=== PATIENT | female | born 1995 | race Caucasian/White ===

== ENCOUNTER 2016-10-13 13:47 | Emergency (ER) | payer OTHER ==
[~2016-10-13] VITALS: Ht 175.3 cm; Wt 61.2 kg
[~2016-10-13 13:47] MED LIST: AZITHROMYCIN250 MG PO; BIRTH CONTROL PILL; CIPRO500 MG PO; CONCERTA54 MG PO; GUAIATUSSIN AC10 ML PO; IMITREX25 MG PO; NORCO 5-325 TA1 EACH PO; PYRIDIUM200 MG PO
[2016-10-13] MEDS ORDERED: AZITHROMYCIN250 MG PO (16:53)
[2016-10-13] MEDS ORDERED: PREDNISONE20 MG PO (16:53)
== END 2016-10-13 17:08 | disposition home or self-care (01) ==
LOC: ED 13:47
DX: J18.9 Pneumonia, unspecified organism (principal); J45.909 Unspecified asthma, uncomplicated; F90.9 Attention-deficit hyperactivity disorder, unspecified type; Z79.899 Other long term (current) drug therapy
CPT/HCPCS: 71020; 84703; 85025; 94640; 94644; 96360; 96361; 99284; J7030

== ENCOUNTER 2022-07-26 16:31 | Inpatient (IN) | payer OTHER ==
[~2022-07-26] VITALS: Ht 175.3 cm; Wt 89.4 kg
[~2022-07-26 16:31] MED LIST changes: +PREDNISONE20 MG PO
[2022-07-26 17:28] VITALS: BP 144/83
--- NOTE | 2022-07-26 20:14 | PR ---
[facility] [address], [place] [address] Signed Progress Notes IP Datetime Report Generated by CPN: 07/26/2022 20:14 PROGRESS NOTES: [id number] Impression: Normal Progression of Labor; Reassuring Heart Rate Plan: Continue Present Management Informed Consent Obtain: Vaginal Delivery; Risks, Benefits and Alternatives Discussed VITAL SIGNS: [id number] Vital Signs: Reviewed VS Notable Details: Initial BP slightly elevated; will monitor EXAM: [id number] Dilatation: 2.0 Effacement: 60 Station: -2 Contractions: Irritability MEMBRANES: [id number] Nitrazine: Positive Comments: Pt seen and examined. Doing well. Becoming more comfortable w/ contractions w/ epidural. RN checked pt _19:00 due to pt c/o rectal pressure; cervix unchanged. Reviewed no s/sx chorioamnionitis. Discussed contraction pattern; high frequency w/ low amplitude. Unable to start pitocin and fetus tolerating well. Will expectantly manage at this point. FETUS A: [id number] FHR Baseline: 135 Variability: Moderate 6-25bpm Accelerations: 15X15 Decelerations: None FHR Category: Category I Presentation: Vertex Comments on Fetus A: No evidence of metabolic acidosis FETUS B: [id number] Signing Physician: Laeh Morales DO Copies: ~ *Electronically Signed* 07/26/222013 LEAH MORALES (DEBBIE) DO PATIENT NAME: PEG MCLEOD PROGRESS NOTE DATE OF : 95 PHYSICIAN: LEAH MORALES (JD) DO RPT #: [id number] REPORT IS CONFIDENTIAL AND NOT TO BE RELEASED WITHOUT AUTHORIZATION
--- NOTE | 2022-07-26 23:11 | PR ---
[facility] [address] [place], [place] [address] Signed Progress Notes IP Datetime Report Generated by CPN: 07/26/2022 23:11 PROGRESS NOTES: [id number] Impression: Normal Progression of Labor; Reassuring Heart Rate Procedures: Sterile Vag Exam Plan: Continue Present Management Informed Consent Obtain: Vaginal Delivery; Risks, Benefits and Alternatives Discussed VITAL SIGNS: [id number] Vital Signs: Reviewed VS Notable Details: Initial BP slightly elevated; will monitor EXAM: [id number] Dilatation: 4.0 Effacement: 80 Station: -2 Contractions: Irritability MEMBRANES: [id number] Nitrazine: Positive Comments: Pt seen and examined. Doing well. Comfortable w/ contractions. Afebile w/ no tachycardia noted. No malodorous or purulent amniotic fluid. Will continue expectant management FETUS A: [id number] FHR Baseline: 135 Variability: Moderate 6-25bpm Accelerations: 15X15 Decelerations: None FHR Category: Category I Presentation: Vertex Comments on Fetus A: No evidence of metabolic acidosis FETUS B: [id number] Signing Physician: Leah Morales DO Copies: ~ *Electronically Signed* 07/26/22 5953 LEAH MORALES (DEBBIE) DO PATIENT NAME: PEG MCLEOD PROGRESS NOTE DATE OF : 95 PHYSICIAN: LEAH MORALES (JD) DO RPT #: [id number] REPORT IS CONFIDENTIAL AND NOT TO BE RELEASED WITHOUT AUTHORIZATION
--- NOTE | 2022-07-26 23:12 | PR ---
[facility] [address] [place], [place] [address] Signed Progress Notes IP Datetime Report Generated by CPN: 07/26/2022 23:12 PROGRESS NOTES: [id number] Impression: Normal Progression of Labor; Reassuring Heart Rate Procedures: Sterile Vag Exam Plan: Continue Present Management Informed Consent Obtain: Vaginal Delivery; Risks, Benefits and Alternatives Discussed VITAL SIGNS: [id number] Vital Signs: Reviewed VS Notable Details: Initial BP slightly elevated; will monitor EXAM: [id number] Dilatation: 4.0 Effacement: 80 Station: -2 Contractions: Irritability MEMBRANES: [id number] Nitrazine: Positive Comments: Pt seen and examined. Doing well. Comfortable w/ contractions. Afebile w/ no tachycardia noted. No malodorous or purulent amniotic fluid. Will continue expectant management FETUS A: [id number] FHR Baseline: 135 Variability: Moderate 6-25bpm Accelerations: 15X15 Decelerations: None FHR Category: Category I Presentation: Vertex Comments on Fetus A: No evidence of metabolic acidosis FETUS B: [id number] Signing Physician: Leah Morales DO Copies: ~ *Electronically Signed* 07/26/22 1911 LEAH MORALES (DEBBIE) DO PATIENT NAME: PEG MCLEOD PROGRESS NOTE DATE OF : 95 PHYSICIAN: LEAH MORALES (JD) DO RPT #: [id number] REPORT IS CONFIDENTIAL AND NOT TO BE RELEASED WITHOUT AUTHORIZATION
--- NOTE | 2022-07-27 02:15 | PR ---
[facility] [address] [place], [place] [address] Signed Progress Notes IP Datetime Report Generated by PITER: 07/27/2022 02:15 PROGRESS NOTES: [id number] Impression: Normal Progression of Labor; Reassuring Heart Rate Procedures: Sterile Vag Exam Plan: Continue Present Management; Anticipate Vaginal Delivery Informed Consent Obtain: Vaginal Delivery VITAL SIGNS: [id number] Vital Signs: Reviewed VS Notable Details: Initial BP slightly elevated; will monitor EXAM: [id number] Dilatation: 9.5 Effacement: 100 Station: -1 Contractions: Irritability MEMBRANES: [id number] Nitrazine: Positive Comments: Pt seen and examined. Doing well. Comfortable w/ epidural. No pressure or complaints. On exam (Gracie Bangura RN present as aerial photograph interpreter), bloody show and now 9.5cm -1 station. Discussed anticipated / 2nd stage of labor. All questions answered. Anticipate . Will start pushing once complete FETUS A: [id number] FHR Baseline: 135 Variability: Moderate 6-25bpm Accelerations: 15X15 Decelerations: None FHR Category: Category I Presentation: Vertex Comments on Fetus A: No evidence of metabolic acidosis FETUS B: [id number] Signing Physician: Leah Morales DO Copies: ~ *Electronically Signed* 07/27/22 0215 LEAH MORALES (DEBBIE) DO PATIENT NAME: PEG MCLEOD PROGRESS NOTE DATE OF : 95 PHYSICIAN: LEAH MORALES (JD) DO RPT #: [id number] REPORT IS CONFIDENTIAL AND NOT TO BE RELEASED WITHOUT AUTHORIZATION
--- NOTE | 2022-07-29 06:07 | PR ---
[facility] [address] [facility] [place] [address] Signed PP Progress Notes Datetime Report Generated by CPSaba: 07/29/2022 06:07 SUBJECTIVE: [id number] Pain: Within Normal Limits Nausea/Vomiting: Denies Flatus: Yes Bowel Movement: No Vital Signs: [id number] Vital Signs: Reviewed; Within Normal Limits Notable Details: Afebrile Cardiovascular: Normal Respiratory: Normal Abdomen/Uterus: Normal Lochia: Not Done Vulva/Perineum: Not Done Breasts: Not Done CVA Tenderness: Normal Extremities: Normal Incision: Not Applicable Progress: Normal Exam Comments: Fundus firm U-2 nontender IMPRESSION/PLAN/PROCEDURES: [id number] Impression: Normal Progression Plan: Discharge Progress Notes: Pt seen and examined. Doing well. Ambulating, voiding, and tolerating full diet. Lochia minimal. Perineal pain yesterday became uncontrolled; responded well to prescribed narcotics and sitz baths. well. No fevers/chills or other concerns. Desires d/c home today. Reviewed d/c instructions in detail. Undecided on pp contraception. No other questions or concerns. Signing Physician: Leah Morales DO Copies: ~ *Electronically Signed* 07/29/22 0607 LEAH MORALES (DEBBIE) DO PATIENT NAME: PEG MCLEOD PROGRESS NOTE DATE OF : 95 PHYSICIAN: LEAH MORALES DO (JD) RPT #: [id number] REPORT IS CONFIDENTIAL AND NOT TO BE RELEASED WITHOUT AUTHORIZATION
== END 2022-07-29 13:35 | disposition home or self-care (01) | DRG 807 ==
LOC: FBCO 16:31 → FBC 16:58
PROVIDERS: ADMIT Obstetrics & Gynecology; ATTEND Obstetrics & Gynecology
PROC: 10E0XZZ Delivery of Products of Conception, External Approach (ICD-10-PCS; principal; 2022-07-26)
PROC: 0KQM0ZZ Repair Perineum Muscle, Open Approach (ICD-10-PCS; 2022-07-26)
PROC: 00HU33Z Insertion of Infusion Device into Spinal Canal, Percutaneous Approach (ICD-10-PCS; 2022-07-26)
PROC: 3E0R3BZ Introduction of Anesthetic Agent into Spinal Canal, Percutaneous Approach (ICD-10-PCS; 2022-07-26)
PROC: 3E033VJ Introduction of Other Hormone into Peripheral Vein, Percutaneous Approach (ICD-10-PCS; 2022-07-26)
PROC: 10H07YZ Insertion of Other Device into Products of Conception, Via Natural or Artificial Opening (ICD-10-PCS; 2022-07-26)
PROC: 0UQG7ZZ Repair Vagina, Via Natural or Artificial Opening (ICD-10-PCS; 2022-07-26)
DX: O99.344 Other mental disorders complicating childbirth (principal); Z37.0 Single live birth; L70.9 Acne, unspecified; F32.A Depression, unspecified; F41.9 Anxiety disorder, unspecified; F98.8 Other specified behavioral and emotional disorders with onset usually occurring in childhood and adolescence; O70.1 Second degree perineal laceration during delivery; Z67.10 Type A blood, Rh positive; Z3A.38 38 weeks gestation of pregnancy; Z98.818 Other dental procedure status; Z79.899 Other long term (current) drug therapy
CPT/HCPCS: 01960; 36415; 85027; 86850; 86900; 86901; A9270; J2590; J7121

== ENCOUNTER 2024-02-19 17:04 | Inpatient (IN) | payer OTHER ==
[~2024-02-19] VITALS: Ht 175.3 cm; Wt 83.9 kg
[2024-02-19] MEDS ORDERED: miSOPROStoL 25 MCG TAB ONE ×2 (17:50)
[2024-02-19 17:57] LABS: HEMATOCRIT 36.1 % (35.0-50.0); HEMOGLOBIN 12.2 g/dL (12.0-18.0); MCH 31.4 (27-36); MCV 92.6 fl (81-99); RBC 3.9 M/ul (4.3-5.7); RDW 14.1 (10.5-15.0)
[2024-02-19] MEDS ORDERED: OXYTOCIN/DEXTROSE 5% 20 UNITS/100 ML BAG IV SCH (18:00)
[2024-02-19 18:20] LABS: AMPHETAMINES, URINE NEGATIVE (NEGATIVE); BARBITURATES, URINE NEGATIVE (NEGATIVE); BENZODIAZEPINE, URINE NEGATIVE (NEGATIVE); BUPRENORPHINE, URINE NEGATIVE (NEGATIVE); CANNABINOID, URINE NEGATIVE (NEGATIVE); COCAINE, URINE NEGATIVE (NEGATIVE); ECSTASY, URINE NEGATIVE (NEGATIVE); FENTANYL, URINE NEGATIVE (NEGATIVE); METHADONE, URINE NEGATIVE (NEGATIVE); OPIATES, URINE NEGATIVE (NEGATIVE); OXYCODONE, URINE NEGATIVE (NEGATIVE); PHENCYCLIDINE, URINE NEGATIVE (NEGATIVE)
[2024-02-19 18:32] VITALS: BP 123/73
[2024-02-19 18:32] LABS: ABO A; ANTIBODY SCREEN NEGATIVE; RH POSITIVE
[2024-02-19] MEDS ORDERED: LACTATED RINGER'S 1,000 ML IV SCH (19:00)
[2024-02-19] MEDS ORDERED: CALCIUM CARBONATE 500 MG CHEW PO PRN (19:00)
[2024-02-19] MEDS ORDERED: MAGNESIUM HYDROXIDE/AL HYDROX 30 ML CUP PO PRN (19:00)
[2024-02-19] MEDS ORDERED: LACTATED RINGER'S 1,000 ML IV PRN (19:00)
[2024-02-19] MEDS ORDERED: miSOPROStoL 25 MCG TAB PV SCH (19:00)
[2024-02-20] MEDS ORDERED: OXYTOCIN/0.9 % SODIUM CHLORIDE 500 ML IV SCH ×2 (08:36→20:00)
[2024-02-20] MEDS ORDERED: ROPIVACAINE 0.2% 200 ML BAG ONE (09:44)
[2024-02-20] MEDS ORDERED: fentaNYL citrate 100 MCG/2 ML VIAL ONE (09:44)
[2024-02-20] MEDS ORDERED: ePHEDrine sulfate 5 MG/ML SYRINGE IV PRN (10:30)
[2024-02-20] MEDS ORDERED: LACTATED RINGER'S 500 ML IV PRN (10:30)
[2024-02-20] MEDS ORDERED: ROPIVACAINE 0.2% 200 ML BAG EPIDURAL SCH (10:30)
[2024-02-20] MEDS ORDERED: LACTATED RINGER'S 2,000 ML IV ONE (10:30)
[2024-02-20] MEDS ORDERED: WITCH HAZEL/GLYCERIN 1 EA PAD TOP PRN (20:00)
[2024-02-20] MEDS ORDERED: HYDROCORTISONE ACETATE 25 MG SUPP PR PRN (20:00)
[2024-02-20] MEDS ORDERED: MAGNESIUM HYDROXIDE 30 ML UDC PO PRN (20:00)
[2024-02-20] MEDS ORDERED: MAGNESIUM HYDROXIDE/AL HYDROX 30 ML CUP PO PRN (20:00)
[2024-02-20] MEDS ORDERED: ACETAMINOPHEN 325 MG TAB PO PRN (20:00)
[2024-02-20] MEDS ORDERED: BENZOCAINE 60 ML AEROSOL TOP PRN (20:00)
[2024-02-20] MEDS ORDERED: IBUPROFEN 600 MG TAB PO PRN (20:00)
[2024-02-20] MEDS ORDERED: CALCIUM CARBONATE 500 MG CHEW PO PRN (20:00)
[2024-02-20 20:30] LABS: BASOPHILS 0.3 % (0-2); EOSINOPHILS 0.7 % (0-6); HEMATOCRIT 38.1 % (35.0-50.0); HEMOGLOBIN 12.7 g/dL (12.0-18.0); MCH 31.2 (27-36); MCHC 33.3 g/dl (30-36); MCV 93.5 fl (81-99); MONOCYTES 5.6 % (0-12); NEUTROPHILS 84.4 % (39-80); PLATELET COUNT 306 K/uL (140-440); RBC 4.07 M/ul (4.3-5.7); RDW 14.2 (10.5-15.0)
[2024-02-20] MEDS ORDERED: SENNOSIDES/DOCUSATE 1 EA TAB PO SCH (21:00)
[2024-02-21 05:29] LABS: HEMATOCRIT 32.7 % (35.0-50.0); MCH 31.7 (27-36); MCHC 33.6 g/dl (30-36); MCV 94.6 fl (81-99); RBC 3.46 M/ul (4.3-5.7); RDW 14.2 (10.5-15.0)
== END 2024-02-22 11:40 | disposition home or self-care (01) | DRG 807 ==
LOC: FBC 17:04
PROVIDERS: Obstetrics & Gynecology; ADMIT Advanced Practice Midwife; ATTEND Advanced Practice Midwife
PROC: 10E0XZZ Delivery of Products of Conception, External Approach (ICD-10-PCS; principal; 2024-02-19)
PROC: 0KQM0ZZ Repair Perineum Muscle, Open Approach (ICD-10-PCS; 2024-02-19)
PROC: 10907ZC Drainage of Amniotic Fluid, Therapeutic from Products of Conception, Via Natural or Artificial Opening (ICD-10-PCS; 2024-02-19)
PROC: 3E0R3BZ Introduction of Anesthetic Agent into Spinal Canal, Percutaneous Approach (ICD-10-PCS; 2024-02-19)
PROC: 00HU33Z Insertion of Infusion Device into Spinal Canal, Percutaneous Approach (ICD-10-PCS; 2024-02-19)
DX: O76 Abnormality in fetal heart rate and rhythm complicating labor and delivery (principal); Z37.0 Single live birth; O70.1 Second degree perineal laceration during delivery; Z3A.39 39 weeks gestation of pregnancy; O99.02 Anemia complicating childbirth; Z79.899 Other long term (current) drug therapy
CPT/HCPCS: 01960; 36415; 80307; 85025; 85027; 86850; 86900; 86901; A9270; J2590; J2795; J3010; J7121